=== PATIENT | female | born 1930 | race Caucasian/White ===

== ENCOUNTER 2017-03-26 11:36 | Inpatient (IN) | payer MEDICARE, MEDICAID ==
[~2017-03-26] VITALS: Ht 160 cm; Wt 70.8 kg
[~2017-03-26 11:36] MED LIST: ACET-2154 PO; AMIN30LI2 PO; DOCU-141 PO; ESCI5TAB PO; ESOM40CA PO; FOLI1TAB25 PO; GUAI100S23 PO; HYDR-552 PO; LEVO50TA8 PO; LISI10TA5 PO; MAGN400T30 PO; MEMA14CA PO; SENN8.6C5 PO; SOLI5TAB2 PO; TRAM50TA2 PO
[2017-03-26 12:19] LABS: BASOPHILS # (AUTO) 0.1 K/uL (0.0-8.0); BASOPHILS % (AUTO) 0.6 % (0.0-2.0); EOSINOPHILS # (AUTO) 0.3 K/uL (0.0-0.7); EOSINOPHILS % (AUTO) 1.6 % (0.0-7.0); HEMATOCRIT 42.4 % (37-47); HEMOGLOBIN 13.9 G/DL (12.0-16.0); LYMPHOCYTES # (AUTO) 2.2 K/UL (0.8-4.8); LYMPHOCYTES % (AUTO) 13.2 % (20.5-51.5); MEAN CORPUSCULAR HEMOGLOBIN 28.8 UUG (27.0-31.0); MEAN CORPUSCULAR HGB CONC 33 g/dL (32.0-37.0); MEAN CORPUSCULAR VOLUME 87.5 FL (81.0-99.0); MONOCYTES % (AUTO) 6.1 % (0.0-11.0); NEUTROPHILS # (AUTO) 12.7 K/UL (1.8-8.9); NEUTROPHILS % (AUTO) 78.5 % (38.5-71.5); PLATELET COUNT (AUTO) 203 K/UL (150-450); RED BLOOD CELL COUNT(AUTO) 4.85 MIL/UL (4.2-5.4); WHITE BLOOD COUNT (AUTO) 16.3 K/UL (4.0-11.2)
--- NOTE | 2017-03-26 12:20 | NUR ---
PATIENT WA SEEN BY . SHE IS AWAJE AND ALERT IN NO DISTRESS. SHE IS SLEEPY. DENIES PAIN, DENIES DIZZINESS.
[2017-03-26 12:22] LABS: CARBON DIOXIDE 30 mmol/L (21-32); CHLORIDE 105 mmol/L (98-107); CREATININE 0.6 mg/dL (0.6-1.3); GLUCOSE 103 mg/dL (74-106); POTASSIUM 3.8 mmol/L (3.5-5.1); UREA NITROGEN, BLOOD 30 mg/dL (7-18)
[2017-03-26 12:30] LABS: ALANINE AMINOTRANSFERASE 9 U/L (14-59); ALKALINE PHOSPHATASE 53 U/L (50-136); ASPARTATE AMINOTRANSFERASE 13 U/L (15-37); BILIRUBIN,DIRECT 0.1 mg/dL (0.0-0.2); BILIRUBIN,TOTAL 0.5 mg/dL (0.2-1.0); TOTAL PROTEIN, SERUM 6.6 g/dL (6.4-8.2)
[2017-03-26] MEDS ORDERED: NA P133E RC (12:34)
[2017-03-26] MEDS ORDERED: BISA10SU12 RC (12:34)
[2017-03-26] MEDS ORDERED: CRAN405C PO (12:34)
[2017-03-26] MEDS ORDERED: LACT-214 PO (12:34)
[2017-03-26] MEDS ORDERED: CHOL10002 PO (12:34)
[2017-03-26] MEDS ORDERED: FAMO20TA8 PO (12:34)
[2017-03-26] MEDS ORDERED: ERGO500040 PO (12:34)
[2017-03-26] MEDS ORDERED: ONDA4TAB5 PO (12:34)
[2017-03-26] MEDS ORDERED: MULT-213 PO (12:34)
[2017-03-26] MEDS ORDERED: MAGN400O6 PO (12:34)
[2017-03-26 13:01] LABS: *OCCULT BLOOD STOOL POSITIVE (NEGATIVE)
[2017-03-26] MEDS ORDERED: IOHEXOL 300MG/ML 100 ML INFUS..BTL ONE (13:03)
[2017-03-26] MEDS ORDERED: IV NORMAL SALINE 250 ML IV ONE (13:03)
--- NOTE | 2017-03-26 13:12 | NUR ---
PATIENT IS SLEEPING BUT AROUSES WITH TOUCH. DENIES PAIN. AWAITING LAB RESULTS.
[2017-03-26 13:19] LABS: BAND % (MANUAL) 3 % (0-10); EOSINOPHILS % (MANUAL) 3 % (0-8); LYMPHOCYTES % (MANUAL) 11 % (20-40); MONOCYTES % (MANUAL) 8 % (2-10); NEUTROPHILS % (MANUAL) 75 % (42-75)
[2017-03-26] MEDS ORDERED: METRONIDAZOLE 500 MG/NS 100ML 100 ML IV ONE ×2 (14:30→14:43)
[2017-03-26] MEDS ORDERED: CIPROFLOXACIN IV 400 MG in PREMIXED 1 EACH IV SCH (14:30)
--- NOTE | 2017-03-26 14:57 | NUR ---
PATIENT INFORMED OF PENDING ADMISSION TO HOSPITAL. REPORT GIVEN TO JULIO HERNDON.
--- NOTE | 2017-03-26 15:13 | NUR ---
PATIENTS DAUGHTER CALLED AND WILL BE ARRIVING SOON.
[2017-03-26 16:40] VITALS: BP 118/59
--- NOTE | 2017-03-26 16:50 | NUR ---
PT CAME FROM ER. SCANT BLOOD THAT CAME FROM RECTAL ARE NOTED. NO S/S OF RESPIRATORY DISTRESS NOTED. NO PAIN NOTED. ALL SAFETY NEEDS ARE MET.
--- NOTE | 2017-03-26 18:39 | NUR ---
TEL/RBO FROM DR SELLERS TO CONTINUE ALL HOME MEDS, CBC AND CMP IN AM, REGULAR DIET AND IVF. ENDORSED TO NURSE
[2017-03-26] MEDS ORDERED: FLEET ENEMA 133 ML BOTTLE RC PRN (18:45)
[2017-03-26] MEDS ORDERED: MAGNESIUM HYDROXIDE 30 ML LIQUID UDC PO PRN (18:45)
[2017-03-26] MEDS ORDERED: TRAMADOL HCL 50 MG TABLET PO PRN (18:45)
[2017-03-26] MEDS ORDERED: SENNOSIDES 1 TABLET PO PRN (18:45)
[2017-03-26] MEDS ORDERED: GUAIFENESIN SUGAR FREE 100 MG/5 ML UDC PO PRN (18:45)
[2017-03-26] MEDS ORDERED: HYDROCODONE/APAP 5-325MG TABLET PO PRN (18:45)
[2017-03-26] MEDS ORDERED: ACETAMINOPHEN 325 MG TABLET PO PRN (18:45)
[2017-03-26] MEDS ORDERED: ONDANSETRON HCL 4 MG TABLET PO PRN (18:45)
[2017-03-26] MEDS ORDERED: BISACODYL 10 MG SUPP.RECT RC PRN (18:45)
[2017-03-26] MEDS: IV D5/ 0.9% NACL 1,000 ML IV PRN (18:50)
--- NOTE | 2017-03-26 19:29 | NUR ---
NO CHANGES NOTED. ALL SAFETY NEEDS ARE MET.
[2017-03-26 20:00] VITALS: BP 120/39
[2017-03-26] MEDS: DOCUSATE SODIUM 100 MG CAPSULE PO SCH (20:00)
--- NOTE | 2017-03-26 23:45 | NUR ---
PATIENT PULL OUT HER IV LINE, WITH SLIGHT BLEEDING NOTED, ORIENT PATIENT NOT TO REMOVED HER IV LINE, PATIENT NEEDS REORIENTATION AT ALL TIME. REINSERT PERIPHERAL IV LINE TOLERATE WELL, CONT TO MONITOR.
[2017-03-27] VITALS: BP 108/44
[2017-03-27 04:00] VITALS: BP 109/59
[2017-03-27] MEDS: LEVOTHYROXINE SODIUM 50 MCG TABLET PO SCH (06:11)
[2017-03-27 06:41] LABS: BASOPHILS % (AUTO) 0.4 % (0.0-2.0); EOSINOPHILS # (AUTO) 0.3 K/uL (0.0-0.7); EOSINOPHILS % (AUTO) 3.2 % (0.0-7.0); HEMOGLOBIN 12.3 G/DL (12.0-16.0); LYMPHOCYTES % (AUTO) 18.4 % (20.5-51.5); MEAN CORPUSCULAR HEMOGLOBIN 29.8 UUG (27.0-31.0); MEAN CORPUSCULAR HGB CONC 34 g/dL (32.0-37.0); MEAN CORPUSCULAR VOLUME 86.5 FL (81.0-99.0); MONOCYTES # (AUTO) 0.7 K/UL (0.1-1.30); MONOCYTES % (AUTO) 6.3 % (0.0-11.0); NEUTROPHILS # (AUTO) 7.8 K/UL (1.8-8.9); NEUTROPHILS % (AUTO) 71.7 % (38.5-71.5); PLATELET COUNT (AUTO) 183 K/UL (150-450)
[2017-03-27 06:51] LABS: RED BLOOD CELL COUNT(AUTO) 4.13 MIL/UL (4.2-5.4); WHITE BLOOD COUNT (AUTO) 10.8 K/UL (4.0-11.2)
[2017-03-27 06:52] LABS: HEMATOCRIT 35.7 % (37-47)
[2017-03-27 06:55] LABS: ALANINE AMINOTRANSFERASE 13 U/L (14-59); ALKALINE PHOSPHATASE 46 U/L (50-136); ASPARTATE AMINOTRANSFERASE 12 U/L (15-37); BILIRUBIN,TOTAL 0.3 mg/dL (0.2-1.0); CARBON DIOXIDE 28 mmol/L (21-32); CHLORIDE 107 mmol/L (98-107); CREATININE 0.7 mg/dL (0.6-1.3); GLUCOSE 97 mg/dL (74-106); POTASSIUM 3.3 mmol/L (3.5-5.1); TOTAL PROTEIN, SERUM 5.7 g/dL (6.4-8.2); UREA NITROGEN, BLOOD 19 mg/dL (7-18)
--- NOTE | 2017-03-27 07:28 | NUR ---
PATIENT SLEPT INTERMITTENTLY T/O SHIFT. NO ACUTE DISTRESS NOTED. NO CHANGES T/O SHIFT. ALL NEEDS MET. SAFETY AND COMFORT MAINTAINED T/O SHIFT.
[2017-03-27] MEDS: OXYBUTYNIN CHLORIDE 5 MG TABLET PO SCH ×2 (08:20→17:44)
[2017-03-27] MEDS: MAGNESIUM OXIDE 400 MG TABLET PO SCH (08:20)
[2017-03-27] MEDS: FAMOTIDINE 20 MG TABLET PO SCH ×2 (08:20→17:44)
[2017-03-27] MEDS: CHOLECALCIFEROL 1,000 UNIT TABLET PO SCH (08:20)
[2017-03-27] MEDS: MULTIVIT, IRON, MIN NO. 8, FA TABLET PO SCH (08:20)
[2017-03-27] MEDS: DOCUSATE SODIUM 100 MG CAPSULE PO SCH ×2 (08:20→17:44)
[2017-03-27] MEDS: IV D5/ 0.9% NACL 1,000 ML IV PRN ×2 (08:21→20:51)
[2017-03-27] MEDS: LISINOPRIL 10 MG TABLET PO SCH (08:30)
[2017-03-27] MEDS ORDERED: ERGOCALCIFEROL 50,000 UNIT CAPSULE PO SCH (09:00)
[2017-03-27] MEDS ORDERED: LACTOSE FREE FOOD PO SCH (09:00)
[2017-03-27] MEDS ORDERED: Medication Not On Formulary EA (Cranberry Extract (Cranberry) 405 MG) PO SCH (09:00)
[2017-03-27] MEDS ORDERED: SOLIFENACIN SUCCINATE 5 MG TABEC PO SCH (09:00)
[2017-03-27 11:23] VITALS: BP 120/56
[2017-03-27] MEDS ORDERED: POTASSIUM CHLORIDE 20 MEQ TAB.PRT.SR PO ONE (12:45)
[2017-03-27 16:02] VITALS: BP 114/50
[2017-03-27] MEDS: PROTEIN SUPPLEMENT (PROSTAT) 30 ML LIQUID PO SCH (17:42)
[2017-03-27 19:00] VITALS: BP 136/70
--- NOTE | 2017-03-27 19:00 | NUR ---
PATIENT IN BED, NO SOB NO CHEST PAIN, WITH EPISODES OF AGITATION, ASSESS FOR PAIN AND DISCOMFORT, KEPT CLEAN AND DRY, GIVEN BRITTNEY CARE, REPOSITION THE PATIENT WITH HELP. CONT TO MONITOR.
--- NOTE | 2017-03-27 19:22 | NUR ---
pt is laying in bed comfortably. no s/s of respiratory distress noted. no pain noted. all safety needs are met.
--- NOTE | 2017-03-27 21:50 | NUR ---
PATIENT REFUSED DVT PUMP, COMPLAINING OF UNCOMFORTABLE. PATIENT COMPLAIN OF GENERALIZED BODY PAIN, AND RESTLESS, GIVEN PAIN MEDS AWAITING FOR RESULTS, NOTED PATIENT PULLING OUT IV LINE, REORIENT PATIENT BUT NO HELP, CONTINUE TO ORIENT AND MONITOR. KEPT CLEAN AND DRY.
[2017-03-27 23:57] VITALS: BP 114/60
[2017-03-28 04:00] VITALS: BP 126/58
--- NOTE | 2017-03-28 05:27 | NUR ---
PATIENT SLEPT ON AND OFF, NO SOB NO CHEST PAIN, KEPT CLEAN AND DRY, PATIENT TRIED TO PULLED OUT IV, AND ARM BAND, REORIENT PATIENT NOT TO REMOVED ARM BAND, PATIENT RYTHM IS SINUS RYTHM, CONT TO MONITOR.
[2017-03-28] MEDS: LEVOTHYROXINE SODIUM 50 MCG TABLET PO SCH (06:02)
[2017-03-28 06:34] LABS: BASOPHILS # (AUTO) 0.1 K/uL (0.0-8.0); BASOPHILS % (AUTO) 0.6 % (0.0-2.0); EOSINOPHILS # (AUTO) 0.4 K/uL (0.0-0.7); EOSINOPHILS % (AUTO) 4.2 % (0.0-7.0); HEMATOCRIT 35.9 % (37-47); HEMOGLOBIN 12.1 G/DL (12.0-16.0); LYMPHOCYTES # (AUTO) 1.8 K/UL (0.8-4.8); LYMPHOCYTES % (AUTO) 21.5 % (20.5-51.5); MEAN CORPUSCULAR HEMOGLOBIN 29.2 UUG (27.0-31.0); MEAN CORPUSCULAR HGB CONC 34 g/dL (32.0-37.0); MONOCYTES # (AUTO) 0.7 K/UL (0.1-1.30); MONOCYTES % (AUTO) 7.8 % (0.0-11.0); NEUTROPHILS # (AUTO) 5.4 K/UL (1.8-8.9); NEUTROPHILS % (AUTO) 65.9 % (38.5-71.5); PLATELET COUNT (AUTO) 186 K/UL (150-450); RED BLOOD CELL COUNT(AUTO) 4.12 MIL/UL (4.2-5.4); WHITE BLOOD COUNT (AUTO) 8.4 K/UL (4.0-11.2)
[2017-03-28 07:23] LABS: ALANINE AMINOTRANSFERASE 10 U/L (14-59); ALKALINE PHOSPHATASE 43 U/L (50-136); ASPARTATE AMINOTRANSFERASE 11 U/L (15-37); BILIRUBIN,TOTAL 0.3 mg/dL (0.2-1.0); CARBON DIOXIDE 29 mmol/L (21-32); CHLORIDE 107 mmol/L (98-107); CREATININE 0.6 mg/dL (0.6-1.3); GLUCOSE 103 mg/dL (74-106); MAGNESIUM 1.8 mg/dL (1.8-2.4); PHOSPHOROUS 2.7 mg/dL (2.5-4.9); POTASSIUM 3.5 mmol/L (3.5-5.1); TOTAL PROTEIN, SERUM 5.6 g/dL (6.4-8.2); UREA NITROGEN, BLOOD 12 mg/dL (7-18)
[2017-03-28] MEDS: PROTEIN SUPPLEMENT (PROSTAT) 30 ML LIQUID PO SCH ×3 (07:53→16:05)
[2017-03-28] MEDS: IV D5/ 0.9% NACL 1,000 ML IV PRN ×2 (08:11→23:29)
[2017-03-28] MEDS: MAGNESIUM OXIDE 400 MG TABLET PO SCH (08:11)
[2017-03-28] MEDS: CHOLECALCIFEROL 1,000 UNIT TABLET PO SCH (08:11)
[2017-03-28] MEDS: DOCUSATE SODIUM 100 MG CAPSULE PO SCH ×2 (08:11→16:57)
[2017-03-28] MEDS: MULTIVIT, IRON, MIN NO. 8, FA TABLET PO SCH (08:15)
[2017-03-28] MEDS: OXYBUTYNIN CHLORIDE 5 MG TABLET PO SCH ×2 (08:15→16:57)
[2017-03-28] MEDS: LISINOPRIL 10 MG TABLET PO SCH (08:15)
[2017-03-28] MEDS: FAMOTIDINE 20 MG TABLET PO SCH ×2 (08:15→16:57)
[2017-03-28] MEDS: QUETIAPINE FUMARATE 25 MG TABLET PO PRN ×2 (09:07→16:57)
[2017-03-28 11:56] VITALS: BP 159/88
[2017-03-28 15:45] VITALS: BP 136/66
--- NOTE | 2017-03-28 18:00 | NUR ---
PT'S FAMILY STATING THAT PT IS AGITATED AND NEEDS MEDICATION FOR AGITATION. ASSESSED THE PT, PT IS AGITATED AND TRYING TO GET OUT OF BED. PT IS A FALL RISK. ADMINISTERED SEROQUEL PER DR'S ORDER. AFTER 2 MIN OF SEROQUEL GIVEN PT'S FAMILY SAID SHE GOT AGITATED AND CONFUSED AFTER SEROQUEL DOSE. EXPLAINED THAT MEDICATION NEEDS MORE TIME TO START WORKING. PT'S FAMILY IS UPSET THAT SEROQUEL IS GIVEN. CALLED DR. SAM PER DR SAM "STOP SEROQUEL AND GIVE BENADRYL PO FOR ITCHING 25MG Q6PRN FOR ITCHING" ORDER NOTED. DR. SAM WAS PAGED 2 TIMES BEFPRE CALLING BACK. ADVISED FAMILY.
[2017-03-28 19:00] VITALS: BP 140/85
[2017-03-28] MEDS ORDERED: diphenhydrAMINE 25 MG CAP PO PRN (19:00)
--- NOTE | 2017-03-28 19:30 | NUR ---
NO CHANGES NOTED. ALL SAFETY NEEDS ARE MET.
--- NOTE | 2017-03-28 20:30 | NUR ---
Benadryl 25 mg po admin for c/o itching,effective.patient was seen by for Psych consult,order received.SR with pvc's on monitor,high risk fall, bed alarm on.
[2017-03-28] MEDS: risperiDONE 0.25 MG TABLET PO SCH (21:50)
--- NOTE | 2017-03-28 22:20 | NUR ---
RECEIVED PATIENT SLEEPING COMFORTABLY IN BED. NO ACUTE DISTRESS NOTED. SAFETY INITIATED. CALL LIGHT WITHIN REACH. TELE SR WITH PVC. WILL CONTINUE TO MONITOR.
[2017-03-29] VITALS: BP 151/71
[2017-03-29 04:00] VITALS: BP 138/66
[2017-03-29] MEDS: LEVOTHYROXINE SODIUM 50 MCG TABLET PO SCH (06:01)
--- NOTE | 2017-03-29 07:27 | NUR ---
NO CHANGES T/O SHIFT. ALL COMFORT AND SAFETY MEASURES MAINTAINED T/O SHIFT. CALL LIGHT WITHIN REACH.
--- NOTE | 2017-03-29 08:00 | NUR ---
AWAKE COOPERATE WELL NO SOB OR PAIN ON FALL/ASPIRATION PRECAUTION BED ALARM ON AND CALL LIGHT WITHIN REACH
[2017-03-29] MEDS: CHOLECALCIFEROL 1,000 UNIT TABLET PO SCH (08:35)
[2017-03-29] MEDS: FAMOTIDINE 20 MG TABLET PO SCH ×2 (08:35→16:59)
[2017-03-29] MEDS: LISINOPRIL 10 MG TABLET PO SCH (08:36)
[2017-03-29] MEDS: OXYBUTYNIN CHLORIDE 5 MG TABLET PO SCH ×2 (08:36→16:59)
[2017-03-29] MEDS: MAGNESIUM OXIDE 400 MG TABLET PO SCH (08:36)
[2017-03-29] MEDS: MULTIVIT, IRON, MIN NO. 8, FA TABLET PO SCH (08:36)
[2017-03-29] MEDS: DOCUSATE SODIUM 100 MG CAPSULE PO SCH ×2 (08:37→16:59)
[2017-03-29] MEDS: PROTEIN SUPPLEMENT (PROSTAT) 30 ML LIQUID PO SCH ×3 (08:45→17:03)
[2017-03-29] MEDS: IV D5/ 0.9% NACL 1,000 ML IV PRN ×2 (10:00→23:37)
[2017-03-29 11:09] VITALS: BP 114/53
--- NOTE | 2017-03-29 13:00 | NUR ---
DR SAM SEE PATIENT TODAY CONDITION INFORM AND URINE FOR UA c&S COLLECT AND SEND TO LAB
[2017-03-29 15:07] VITALS: BP 110/64
[2017-03-29 15:56] LABS: *BILIRUBIN,URIN NEGATIVE (NEGATIVE); *BLOOD, URINE 2+ (NEGATIVE); *CLARITY,URINE CLOUDY (CLEAR); *COLOR,URINE YELLOW (YELLOW); *KETONES,URINE NEGATIVE (NEGATIVE); *PROTEIN,URINE 1+ (NEGATIVE); LEUKOCYTE ESTERASE ,URINE 1+ (NEGATIVE); NITRITE, URINE NEGATIVE (NEGATIVE); PH,URINE 7.5 (5.0-8.0); UGLUCOSE NEGATIVE (NEGATIVE)
[2017-03-29] MEDS ORDERED: GOLYTELY 4000 ML BOTTLE PO ONE (16:45)
--- NOTE | 2017-03-29 17:00 | NUR ---
DR GONZALES SEEN PATIENT AND ORDER SCHEDULE FOR COLONOSCOPY IN AM
--- NOTE | 2017-03-29 17:30 | NUR ---
START CLEAR LIQ FOR DINNER AND GOLYTELY GIVEN ORDER FAMILY WAS CALL FOR TEL CONSENT AND MESSAGE LEFT
--- NOTE | 2017-03-29 17:45 | NUR ---
RESTING WELL MOST OF THE TIME NO AGITATION PAIN UNDER CONTROL NO BLEEDING NO ACUTE DISTRESS SAFETY MEASURE PROVIDED CALL SUERO IN REACH
[2017-03-29 17:47] LABS: BACTERIA,URINE MANY /HPF (NONE SEEN); SQUAMOUS EPITHELIAL CELL,UR MANY /HPF (NONE SEEN); WBC,URINE 50-80 /HPF (0-3)
[2017-03-29 19:55] VITALS: BP 112/66
[2017-03-29] MEDS: risperiDONE 0.25 MG TABLET PO SCH (21:44)
[2017-03-30 05:00] VITALS: BP 127/66
--- NOTE | 2017-03-30 06:00 | NUR ---
Pt slepted well during the night after completing 3.5 liters of golytely and tolerated well with no vomiting episodes noted. pt had several good loose brown bowel movements during the night, partial clear. Consent signed via telephone with son Sameer Dorita, and abstract writer, witnessed with smelter charger Cindy.
[2017-03-30] MEDS: LEVOTHYROXINE SODIUM 50 MCG TABLET PO SCH (06:40)
[2017-03-30] MEDS ORDERED: IRR STERIL WATER FOR IRR 1000 ML BOTTLE IR ONE (07:35)
[2017-03-30] MEDS ORDERED: PROPOFOL 200 MG/20 ML BOTTLE IV ONE (07:35)
[2017-03-30] MEDS ORDERED: IV NORMAL SALINE 1000 ML BAG IV ONE (07:35)
[2017-03-30] MEDS: PROTEIN SUPPLEMENT (PROSTAT) 30 ML LIQUID PO SCH ×3 (07:59→16:59)
[2017-03-30] MEDS: CHOLECALCIFEROL 1,000 UNIT TABLET PO SCH (08:00)
[2017-03-30] MEDS: MAGNESIUM OXIDE 400 MG TABLET PO SCH ×2 (08:00→15:30)
[2017-03-30] MEDS: FAMOTIDINE 20 MG TABLET PO SCH ×2 (08:00→16:57)
[2017-03-30] MEDS: MULTIVIT, IRON, MIN NO. 8, FA TABLET PO SCH ×2 (08:00→15:30)
[2017-03-30] MEDS: OXYBUTYNIN CHLORIDE 5 MG TABLET PO SCH ×2 (08:00→16:57)
[2017-03-30] MEDS: DOCUSATE SODIUM 100 MG CAPSULE PO SCH ×2 (08:00→16:57)
--- NOTE | 2017-03-30 08:00 | NUR ---
AWAKE COOPERATE WELL NO PAIN OR SOB ON FALL /ASPIRATION PRECAUTION NPO FOR COLONOSCOPY TODAY RESTING WELL WITH CALL SUERO IN REACH AND BED ALARNM ON
[2017-03-30] MEDS: LISINOPRIL 10 MG TABLET PO SCH (08:08)
--- NOTE | 2017-03-30 09:30 | NUR ---
DR ASM WAS INFORM OF UA RESULT NO NEW ORDER WAITING FOR STOOL C DIFF RESULT STILL PENDING
[2017-03-30 11:37] VITALS: BP 116/47
--- NOTE | 2017-03-30 13:00 | NUR ---
TO GI LAB VIA BED CONDITION STABLE
[2017-03-30 15:00] VITALS: BP 121/56
--- NOTE | 2017-03-30 15:00 | NUR ---
DR SAM WAS CALL AND DR VERITO LAN REGARDING LAB URINE C$S RESULT AND STOOL C DIFF RESULT AND MESSAGE LEFT
--- NOTE | 2017-03-30 15:00 | NUR ---
BACK TO ROOM VS TAKEN STABLE NO PAIN OR SOB RESTING WITH CALL LIGHT IN REACH
--- NOTE | 2017-03-30 15:00 | NUR ---
BACK TO ROOM VS TAKEN STABLE NO PAIN OR SOB
[2017-03-30 15:47] VITALS: BP 121/56
--- NOTE | 2017-03-30 17:00 | NUR ---
EAT DINNER 40% PO FLD RAZA WELL VOIDING WELL DIAPER CHANGE
--- NOTE | 2017-03-30 17:30 | NUR ---
STABLE CONDITION RESTING WELL MOST OF THE TIME NO ACUTE DISTRESS PAIN UNDER CONTROL SAFETY MEASURE PROVIDED CALL SUERO IN REACH AND BED ALARM ON
--- NOTE | 2017-03-30 18:00 | NUR ---
DR SELLERS CALL BACK PT URINE C&S AND STOOL C DIFF RESULT INFORM NO ORDER
[2017-03-30 20:00] VITALS: BP 143/72
[2017-03-30] MEDS: risperiDONE 0.25 MG TABLET PO SCH (20:03)
[2017-03-31 04:50] VITALS: BP 109/57
[2017-03-31] MEDS: LEVOTHYROXINE SODIUM 50 MCG TABLET PO SCH (06:33)
--- NOTE | 2017-03-31 06:43 | NUR ---
PT IN BED, RESTING WELL. RESP IS EVEN AND UNLABORED. NO SOB. NO ACUTE DISTRESS. ALL DUE MEDS GIVEN ORDERED AND RAZA WELL. SAFETY MEASURES IN PLACE. CALL LIGHT WITH IN REACH. WILL CONT TO MONITOR.
[2017-03-31] MEDS: FAMOTIDINE 20 MG TABLET PO SCH ×2 (08:46→16:59)
[2017-03-31] MEDS: CHOLECALCIFEROL 1,000 UNIT TABLET PO SCH (08:46)
[2017-03-31] MEDS: MULTIVIT, IRON, MIN NO. 8, FA TABLET PO SCH (08:46)
[2017-03-31] MEDS: MAGNESIUM OXIDE 400 MG TABLET PO SCH (08:46)
[2017-03-31] MEDS: DOCUSATE SODIUM 100 MG CAPSULE PO SCH ×2 (08:46→16:59)
[2017-03-31] MEDS: OXYBUTYNIN CHLORIDE 5 MG TABLET PO SCH ×2 (08:46→16:59)
[2017-03-31] MEDS: PROTEIN SUPPLEMENT (PROSTAT) 30 ML LIQUID PO SCH ×3 (08:48→17:00)
[2017-03-31] MEDS: LISINOPRIL 10 MG TABLET PO SCH (08:49)
[2017-03-31] MEDS: Z GUARD REMEDY PASTE 57 GM TUBE TOP SCH ×2 (09:38→20:08)
--- NOTE | 2017-03-31 11:41 | NUR ---
PATIENT SEEN AND EXAMINED BY DR CUELLAR WITH NEW ORDER TO START PATIENT ON ANTIBIOTICS AND NOTED PATIENT AWARE.
[2017-03-31 12:24] VITALS: BP 149/63
[2017-03-31] MEDS: CEFAZOLIN 1 G in PREMIXED 1 EACH IV SCH ×2 (15:25→23:41)
[2017-03-31 16:44] VITALS: BP 112/60
--- NOTE | 2017-03-31 17:15 | NUR ---
PT IN BED, RESTING WELL. RESP IS EVEN AND UNLABORED. NO SOB. NO ACUTE DISTRESS. SAFETY MEASURES IN PLACE. CALL LIGHT WITH IN REACH. WILL CONT TO MONITOR.
--- NOTE | 2017-03-31 18:00 | NUR ---
IVPB ATB REMAINS ORDERED WITH NO ADVERSE OR ALLERGIC REACTIONS AT THIS TIME.PATIENT SEEN AND EXAMINED BY DR DUGAN WITH NO NEW ORDERS AT THIS TIME
[2017-03-31] MEDS: risperiDONE 0.25 MG TABLET PO SCH (20:07)
[2017-03-31 21:31] VITALS: BP 131/67
[2017-04-01] MEDS: CEFAZOLIN 1 G in PREMIXED 1 EACH IV SCH ×2 (05:14→13:12)
[2017-04-01 05:22] VITALS: BP 140/66
[2017-04-01] MEDS: LEVOTHYROXINE SODIUM 50 MCG TABLET PO SCH (06:10)
--- NOTE | 2017-04-01 06:38 | NUR ---
PT IS ALERT AND RESPONSIVE. RESP IS EVEN AND UNLABORED. NO SOB. NO ACUTE DISTRESS. ATB GIVEN ORDERED AND TOLERATED. IV ON R HAND, PATENT AND INTACT. VSS. CALL LIGHT WITHIN REACH.
[2017-04-01] MEDS: MULTIVIT, IRON, MIN NO. 8, FA TABLET PO SCH (08:49)
[2017-04-01] MEDS: MAGNESIUM OXIDE 400 MG TABLET PO SCH (08:49)
[2017-04-01] MEDS: OXYBUTYNIN CHLORIDE 5 MG TABLET PO SCH ×2 (08:49→16:37)
[2017-04-01] MEDS: FAMOTIDINE 20 MG TABLET PO SCH ×2 (08:49→16:37)
[2017-04-01] MEDS: DOCUSATE SODIUM 100 MG CAPSULE PO SCH ×2 (08:49→16:37)
[2017-04-01] MEDS: CHOLECALCIFEROL 1,000 UNIT TABLET PO SCH (08:50)
[2017-04-01] MEDS: LISINOPRIL 10 MG TABLET PO SCH (08:50)
[2017-04-01] MEDS: Z GUARD REMEDY PASTE 57 GM TUBE TOP SCH (08:58)
[2017-04-01] MEDS: PROTEIN SUPPLEMENT (PROSTAT) 30 ML LIQUID PO SCH ×3 (08:58→16:41)
[2017-04-01 11:44] VITALS: BP 117/84
[2017-04-01] MEDS ORDERED: PROT30LI PO (13:33)
[2017-04-01] MEDS ORDERED: MENT71OI TOP (13:33)
[2017-04-01] MEDS ORDERED: RISP0.253 PO (13:33)
--- NOTE | 2017-04-01 13:37 | NUR ---
DR CUELLAR HERE TO SEE PATIENT AND STATED WILL DISCHARGE PATIENT BACK TO [facility] TODAY WILL CALL THE SNF TO CONFIRM THE BED AVAILABILITY.
--- NOTE | 2017-04-01 14:00 | NUR ---
NEW ORDER NOTED FROM DR CUELLAR TO START KEFLEX FOR THREE DAYS WHILE AT THE LONG-TERM.CALLED SUELLEN KU AND LEFT HIM A MESSAGE ON HIS VOICE MAIL REGARDING PATIENT BEING DISCHARGED TO [facility] TODAY.
[2017-04-01 15:54] VITALS: BP 128/56
--- NOTE | 2017-04-01 17:32 | NUR ---
PATIENTS SON AND HIS ARE HERE AND THEY ARE AWARE THAT PATIENT WILL BE TRANSFERED TO THE [facility] TODAY.CALLED [facility] AND REPORT GIVEN TO [facility] FOR CONTINUING CARE SHE IS AWARE THAT PATIENT SHOULD START ON KEFLEX DAILY FOR 3 DAYS AND SHE EXPRESSED UNDERSTANDING.
--- NOTE | 2017-04-01 19:00 | NUR ---
PATIENT DISCHARGED PICKED UP BY [facility] IN SATISFACTORY CONDITION WITH DISCHARGE INSTRUCTIONS ALREADY GIVEN TO THE RECEIVING FACILITY.PATIENT HAS HER EYE GLASSES AND SHE IS WEARING IT AT THIS TIME.
[2017-04-02] MEDS ORDERED: ERGOCALCIFEROL 50,000 UNIT CAPSULE PO SCH (09:00)
== END 2017-04-01 18:58 | DRG 392 ==
LOC: ER 11:36 → MED 15:23 → UNDOADMIN 15:23 → TELE 15:59 → MED 03-29 17:06
PROVIDERS: ADMIT Internal Medicine; ATTEND Internal Medicine
PROC: 0DBK8ZX Excision of Ascending Colon, Via Natural or Artificial Opening Endoscopic, Diagnostic (ICD-10-PCS; 2017-03-30)
PROC: 0DBL8ZX Excision of Transverse Colon, Via Natural or Artificial Opening Endoscopic, Diagnostic (ICD-10-PCS; 2017-03-30)
PROC: 0DBP8ZX Excision of Rectum, Via Natural or Artificial Opening Endoscopic, Diagnostic (ICD-10-PCS; principal; 2017-03-30 13:25)
DX: A08.4 Viral intestinal infection, unspecified (principal); F03.90 Unspecified dementia, unspecified severity, without behavioral disturbance, psychotic disturbance, mood disturbance, and anxiety; N39.0 Urinary tract infection, site not specified; K21.9 Gastro-esophageal reflux disease without esophagitis; E03.9 Hypothyroidism, unspecified; Z91.81 History of falling; Z90.710 Acquired absence of both cervix and uterus; Z96.652 Presence of left artificial knee joint; Z98.890 Other specified postprocedural states; R26.9 Unspecified abnormalities of gait and mobility; I10 Essential (primary) hypertension; F29 Unspecified psychosis not due to a substance or known physiological condition
CPT/HCPCS: 36415; 83735; 84100; 85025; 85730; 86850; 86900; 86901; 87040; 87077; 87086; 97116; 97161; 97530; A4217; J0690; J0744; J3490; J7030; J7040; J7042; J7050; Q0163; Q9967

== ENCOUNTER 2017-10-27 21:53 | Emergency (ER) | payer MEDICARE, MEDICAID ==
[~2017-10-27] VITALS: Ht 160 cm; Wt 70.3 kg
[~2017-10-27 21:53] MED LIST changes: -AMIN30LI2 PO; +BISA10SU12 RC; +CHOL10002 PO; +CRAN405C PO; +ERGO500040 PO; -ESCI5TAB PO; -ESOM40CA PO; +FAMO20TA8 PO; -FOLI1TAB25 PO; +LACT-214 PO; +MAGN400O6 PO; -MEMA14CA PO; +MENT71OI TOP; +MULT-213 PO; +NA P133E RC; +ONDA4TAB5 PO; +PROT30LI PO; +RISP0.253 PO
[2017-10-27] MEDS ORDERED: LORA10TA7 PO (22:13)
[2017-10-27] MEDS ORDERED: DOCU250C14 PO (22:13)
[2017-10-27] MEDS ORDERED: METH1TAB PO (22:13)
[2017-10-27 23:29] LABS: BASOPHILS # (AUTO) 0.1 K/uL (0.0-8.0); BASOPHILS % (AUTO) 0.5 % (0.0-2.0); EOSINOPHILS # (AUTO) 0.4 K/uL (0.0-0.7); EOSINOPHILS % (AUTO) 2.9 % (0.0-7.0); HEMATOCRIT 38.6 % (31.2-41.9); HEMOGLOBIN 12.9 g/dL (10.9-14.3); LYMPHOCYTES # (AUTO) 2.3 K/uL (20.0-40.0); LYMPHOCYTES % (AUTO) 17.8 % (20.5-51.5); MEAN CORPUSCULAR HEMOGLOBIN 28.9 uug (24.7-32.8); MEAN CORPUSCULAR HGB CONC 34 g/dL (32.3-35.6); MEAN CORPUSCULAR VOLUME 86.1 fL (75.5-95.3); MONOCYTES # (AUTO) 0.9 K/uL (2.0-10.0); NEUTROPHILS # (AUTO) 9.1 K/uL (1.8-8.9); NEUTROPHILS % (AUTO) 71.8 % (38.5-71.5); PLATELET COUNT (AUTO) 211 K/uL (179-408); RED BLOOD CELL COUNT(AUTO) 4.48 MIL/uL (3.63-4.92); WHITE BLOOD COUNT (AUTO) 12.7 K/uL (3.8-11.8)
[2017-10-27 23:36] LABS: CARBON DIOXIDE 26 mmol/L (21-32); CHLORIDE 103 mmol/L (98-107); CREATININE 0.8 mg/dL (0.6-1.3); GLUCOSE 118 mg/dL (74-106); POTASSIUM 4.4 mmol/L (3.5-5.1); UREA NITROGEN, BLOOD 31 mg/dL (7-18)
[2017-10-27 23:42] LABS: ALANINE AMINOTRANSFERASE 16 U/L (14-59); ALKALINE PHOSPHATASE 53 U/L (50-136); ASPARTATE AMINOTRANSFERASE 15 U/L (15-37); BILIRUBIN,DIRECT < 0.1 mg/dL (0.0-0.2); BILIRUBIN,TOTAL 0.2 mg/dL (0.2-1.0); TOTAL PROTEIN, SERUM 6.3 g/dL (6.4-8.2)
[2017-10-28 00:41] LABS: *BILIRUBIN,URIN NEGATIVE (NEGATIVE); *BLOOD, URINE 2+ (NEGATIVE); *COLOR,URINE YELLOW (YELLOW); *KETONES,URINE NEGATIVE (NEGATIVE); *PROTEIN,URINE NEGATIVE (NEGATIVE); *UROBILINOGEN,URINE 0.2 E.U./dl (NORMAL); LEUKOCYTE ESTERASE ,URINE TRACE (NEGATIVE); NITRITE, URINE POSITIVE (NEGATIVE); PH,URINE 5.5 (5.0-8.0); UGLUCOSE NEGATIVE (NEGATIVE)
[2017-10-28 00:49] LABS: *CLARITY,URINE HAZY (CLEAR)
[2017-10-28 00:50] LABS: BACTERIA,URINE MANY /HPF (NONE SEEN); SQUAMOUS EPITHELIAL CELL,UR MODERATE /HPF (NONE SEEN)
--- NOTE | 2017-10-28 01:46 | NUR ---
Report given to [facility].
--- NOTE | 2017-10-28 01:49 | NUR ---
Call placed to [facility], Trip #[id number].
--- NOTE | 2017-10-28 04:08 | NUR ---
Patient discharged to home in stable conditon via ambulance. Written and verbal after care instructions given. Patient verbalizes understanding of instructions.
[2017-10-28 04:10] VITALS: BP 131/62
== END 2017-10-28 04:10 | disposition home or self-care (01) ==
LOC: ER 21:54
DX: S00.01XA Abrasion of scalp, initial encounter (principal); R51 Headache; F03.90 Unspecified dementia, unspecified severity, without behavioral disturbance, psychotic disturbance, mood disturbance, and anxiety; I10 Essential (primary) hypertension; Z90.49 Acquired absence of other specified parts of digestive tract; K21.9 Gastro-esophageal reflux disease without esophagitis; W07.XXXA Fall from chair, initial encounter; Y92.89 Other specified places as the place of occurrence of the external cause; Y93.89 Activity, other specified; Y99.8 Other external cause status
CPT/HCPCS: 36415; 70030-TC; 70450; 71045; 72125; 85025; 93005; A4217; A4663; C1758

== ENCOUNTER 2017-11-19 14:59 | Inpatient (IN) | payer MEDICARE, MEDICAID ==
[~2017-11-19] VITALS: Ht 154.9 cm; Wt 59.0 kg
[~2017-11-19 14:59] MED LIST changes: -DOCU-141 PO; +DOCU250C14 PO; -GUAI100S23 PO; -LACT-214 PO; +LORA10TA7 PO; -MENT71OI TOP; +METH1TAB PO; -PROT30LI PO; -RISP0.253 PO
--- NOTE | 2017-11-19 15:32 | NUR ---
ATTEMTED TO DO NIHSS ASSESSMENT WITH THE PT BEST EFFORT POSSIBLE.
[2017-11-19 15:46] LABS: CARBON DIOXIDE 30 mmol/L (21-32); CHLORIDE 103 mmol/L (98-107); CREATININE 0.8 mg/dL (0.6-1.3); GLUCOSE 104 mg/dL (74-106); POTASSIUM 4.2 mmol/L (3.5-5.1); UREA NITROGEN, BLOOD 31 mg/dL (7-18)
[2017-11-19 15:48] LABS: BASOPHILS # (AUTO) 0.1 K/uL (0.0-8.0); EOSINOPHILS # (AUTO) 0.5 K/uL (0.0-0.7); EOSINOPHILS % (AUTO) 5.1 % (0.0-7.0); HEMATOCRIT 40.1 % (31.2-41.9); HEMOGLOBIN 13.3 g/dL (10.9-14.3); LYMPHOCYTES # (AUTO) 2.3 K/uL (20.0-40.0); LYMPHOCYTES % (AUTO) 24.1 % (20.5-51.5); MEAN CORPUSCULAR HEMOGLOBIN 29.1 uug (24.7-32.8); MEAN CORPUSCULAR HGB CONC 33 g/dL (32.3-35.6); MEAN CORPUSCULAR VOLUME 87.4 fL (75.5-95.3); MONOCYTES # (AUTO) 0.8 K/uL (2.0-10.0); MONOCYTES % (AUTO) 8.4 % (0.0-11.0); NEUTROPHILS # (AUTO) 5.9 K/uL (1.8-8.9); NEUTROPHILS % (AUTO) 61.4 % (38.5-71.5); PLATELET COUNT (AUTO) 222 K/uL (179-408); RED BLOOD CELL COUNT(AUTO) 4.59 MIL/uL (3.63-4.92); WHITE BLOOD COUNT (AUTO) 9.7 K/uL (3.8-11.8)
[2017-11-19 15:52] LABS: ALANINE AMINOTRANSFERASE 14 U/L (14-59); ALKALINE PHOSPHATASE 58 U/L (50-136); ASPARTATE AMINOTRANSFERASE 14 U/L (15-37); BILIRUBIN,DIRECT 0.1 mg/dL (0.0-0.2); BILIRUBIN,TOTAL 0.2 mg/dL (0.2-1.0); TOTAL PROTEIN, SERUM 6.6 g/dL (6.4-8.2)
--- NOTE | 2017-11-19 16:11 | NUR ---
Paged dr Guevara for admit.
[2017-11-19 16:19] LABS: *BILIRUBIN,URIN NEGATIVE (NEGATIVE); *BLOOD, URINE 2+ (NEGATIVE); *CLARITY,URINE CLOUDY (CLEAR); *COLOR,URINE YELLOW (YELLOW); *KETONES,URINE NEGATIVE (NEGATIVE); *PROTEIN,URINE NEGATIVE (NEGATIVE); *UROBILINOGEN,URINE 0.2 E.U./dl (NORMAL); LEUKOCYTE ESTERASE ,URINE TRACE (NEGATIVE); NITRITE, URINE POSITIVE (NEGATIVE); PH,URINE 5.5 (5.0-8.0); UGLUCOSE NEGATIVE (NEGATIVE)
[2017-11-19 16:35] LABS: BACTERIA,URINE MANY /HPF (NONE SEEN); SQUAMOUS EPITHELIAL CELL,UR MODERATE /HPF (NONE SEEN)
[2017-11-19] MEDS ORDERED: CEFTRIAXONE 1 G VIAL ONE (16:40)
[2017-11-19] MEDS ORDERED: CEFTRIAXONE 1 G in IV DEXTROSE 5% 50 ML IV SCH (16:45)
--- NOTE | 2017-11-19 17:05 | NUR ---
PT TRANSFERED TO [facility] IN STABLE CONDITION
[2017-11-19 17:20] VITALS: BP 125/66
--- NOTE | 2017-11-19 17:20 | NUR ---
NEW PATIENT FROM ER TO ROOM 214 AWAKE ORTX1 TO NAME BUT ABLE TO FOLLOW SIMPLE DIRECTION AND COOPERATE NO SOB OR PAIN VS TAKEN STABLE ON ASPIRATION /FALL PRECAUTION BED ALARM ON AND CALL LIGHT IN REACH
[2017-11-19] MEDS ORDERED: FLEET ENEMA 133 ML BOTTLE RC PRN (18:45)
[2017-11-19] MEDS ORDERED: BISACODYL 10 MG SUPP.RECT RC PRN (18:45)
[2017-11-19] MEDS ORDERED: MAGNESIUM HYDROXIDE 30 ML LIQUID UDC PO PRN (18:45)
[2017-11-19] MEDS ORDERED: HYDROCODONE/APAP 5-325MG TABLET PO PRN (18:45)
[2017-11-19] MEDS ORDERED: ACETAMINOPHEN 325 MG TABLET PO PRN (18:45)
[2017-11-19] MEDS ORDERED: ONDANSETRON HCL 4 MG TABLET PO PRN (18:45)
[2017-11-19] MEDS ORDERED: CEFTRIAXONE 1 G VIAL IM SCH (18:45)
[2017-11-19] MEDS ORDERED: TRAMADOL HCL 50 MG TABLET PO PRN (18:45)
[2017-11-19] MEDS ORDERED: ONDANSETRON 4 MG/2 ML VIAL IV PRN (18:45)
[2017-11-19 20:00] VITALS: BP 125/59
[2017-11-19] MEDS: SENNOSIDES 1 TABLET PO SCH (21:18)
[2017-11-19] MEDS: ENOXAPARIN SODIUM 40 MG/0.4 ML DISP.SYRIN SQ SCH (21:19)
[2017-11-20] VITALS: BP 117/38
[2017-11-20 04:00] VITALS: BP 121/48
[2017-11-20] MEDS: LEVOTHYROXINE SODIUM 50 MCG TABLET PO SCH (06:10)
[2017-11-20 06:43] LABS: BASOPHILS # (AUTO) 0.1 K/uL (0.0-8.0); BASOPHILS % (AUTO) 0.8 % (0.0-2.0); EOSINOPHILS # (AUTO) 0.4 K/uL (0.0-0.7); EOSINOPHILS % (AUTO) 4.8 % (0.0-7.0); HEMOGLOBIN 12.6 g/dL (10.9-14.3); LYMPHOCYTES # (AUTO) 2.3 K/uL (20.0-40.0); MEAN CORPUSCULAR HEMOGLOBIN 29.3 uug (24.7-32.8); MEAN CORPUSCULAR HGB CONC 34 g/dL (32.3-35.6); MEAN CORPUSCULAR VOLUME 86.2 fL (75.5-95.3); MONOCYTES # (AUTO) 0.6 K/uL (2.0-10.0); MONOCYTES % (AUTO) 8.2 % (0.0-11.0); NEUTROPHILS # (AUTO) 4.1 K/uL (1.8-8.9); NEUTROPHILS % (AUTO) 55.2 % (38.5-71.5); PLATELET COUNT (AUTO) 192 K/uL (179-408); WHITE BLOOD COUNT (AUTO) 7.4 K/uL (3.8-11.8)
[2017-11-20 07:00] LABS: ALANINE AMINOTRANSFERASE 15 U/L (14-59); ALKALINE PHOSPHATASE 51 U/L (50-136); ASPARTATE AMINOTRANSFERASE 12 U/L (15-37); BILIRUBIN,TOTAL 0.3 mg/dL (0.2-1.0); CARBON DIOXIDE 28 mmol/L (21-32); CHLORIDE 105 mmol/L (98-107); CREATININE 0.7 mg/dL (0.6-1.3); GLUCOSE 95 mg/dL (74-106); UREA NITROGEN, BLOOD 22 mg/dL (7-18)
[2017-11-20] MEDS: LISINOPRIL 10 MG TABLET PO SCH (09:00)
[2017-11-20] MEDS ORDERED: SOLIFENACIN SUCCINATE 5 MG TABEC PO SCH (09:00)
[2017-11-20] MEDS ORDERED: HOME MED MISCELLANEOUS PO SCH (09:00)
[2017-11-20] MEDS: MULTIVIT, IRON, MIN NO. 8, FA TABLET PO SCH (09:57)
[2017-11-20] MEDS: MAGNESIUM OXIDE 400 MG TABLET PO SCH (09:57)
[2017-11-20] MEDS: OXYBUTYNIN CHLORIDE 5 MG TABLET PO SCH ×2 (09:57→21:50)
[2017-11-20] MEDS: LORATADINE 10 MG TABLET PO SCH (09:57)
[2017-11-20] MEDS: DOCUSATE SODIUM 250 MG CAPSULE PO SCH ×2 (09:57→17:19)
[2017-11-20] MEDS: CHOLECALCIFEROL 1,000 UNIT TABLET PO SCH (09:58)
[2017-11-20 12:00] VITALS: BP 116/68
[2017-11-20] MEDS: FAMOTIDINE 20 MG TABLET PO SCH ×2 (12:41→17:19)
[2017-11-20 15:36] VITALS: BP 128/45
--- NOTE | 2017-11-20 17:45 | NUR ---
PATIENT ALERT AND ORIENTED BUT CONFUSED AT TIMES. SHE HAD NO SIGN OF AGITATION. BUT SHE FULLED OUT THE IV HEPLOCK IN NITE SHIFT AND AM SHIFT. WE TRIED TO EXPLAINED ABOUT THE NEED OF HEPLOCK. BUT SHE PULLED OUT AGAIN THE NEWLY INSERTED IV HEPLOCK.
--- NOTE | 2017-11-20 19:35 | NUR ---
PT RECEIVED IN BED, AWAKE. A/OX1. ABLE TO MAKE NEEDS KNOWN. V/S STABLE. IN NO ACUTE DISTRESS. NO C/O PAIN AT THIS TIME. NO IV IN PLACE, PT REFUSE. WILL ATTEMPT AT LATER TIME. SINUS KARISSA 53 WITH YESY Lobato MD AWARE. ON RA, TOLERATING WELL. AFEBRILE. HOB ELEVATED. SAFETY MEASURES IMPLEMENTED. CALL LIGHT WITHIN REACH.
[2017-11-20 20:00] VITALS: BP 134/55
[2017-11-20] MEDS: SENNOSIDES 1 TABLET PO SCH (21:50)
[2017-11-20] MEDS: ENOXAPARIN SODIUM 40 MG/0.4 ML DISP.SYRIN SQ SCH (21:51)
[2017-11-20] MEDS: CEFTRIAXONE 1 G in IV DEXTROSE 5% 50 ML IV SCH (22:36)
[2017-11-21] VITALS: BP 132/64
[2017-11-21 04:00] VITALS: BP 137/62
--- NOTE | 2017-11-21 05:45 | NUR ---
END OF SHIFT NOTES. PT SLEPT WELL THROUGHOUT SHIFT. IN STABLE CONDITION. IV ABX INFUSED, TKO 10CC/HR. SINUS 64 ON THE TELE MONITOR. TOLERATED RA WELL. ALL NEEDS ATTENDED. SAFETY MAINTAINED. CALL LIGHT WITHIN REACH.
[2017-11-21] MEDS: LEVOTHYROXINE SODIUM 50 MCG TABLET PO SCH (06:16)
--- NOTE | 2017-11-21 08:13 | NUR ---
Informed by FAMILY CASEWORKER that client removed her right hand IV line. Bleeding noted, cleansed right hand and small bandage applied, noted IV was pulled out intact
[2017-11-21] MEDS: DOCUSATE SODIUM 250 MG CAPSULE PO SCH ×2 (09:21→17:13)
[2017-11-21] MEDS: LORATADINE 10 MG TABLET PO SCH (09:21)
[2017-11-21] MEDS: MULTIVIT, IRON, MIN NO. 8, FA TABLET PO SCH (09:21)
[2017-11-21] MEDS: LISINOPRIL 10 MG TABLET PO SCH (09:22)
[2017-11-21] MEDS: CHOLECALCIFEROL 1,000 UNIT TABLET PO SCH (09:22)
[2017-11-21] MEDS: FAMOTIDINE 20 MG TABLET PO SCH ×2 (09:22→17:13)
[2017-11-21] MEDS: OXYBUTYNIN CHLORIDE 5 MG TABLET PO SCH ×2 (09:22→20:22)
[2017-11-21] MEDS: MAGNESIUM OXIDE 400 MG TABLET PO SCH (09:22)
[2017-11-21 11:06] VITALS: BP 110/50
[2017-11-21 15:10] VITALS: BP 126/49
--- NOTE | 2017-11-21 17:15 | NUR ---
New IV started on the right hand 20g, client tolerated procedure well. No s/s of infiltration, leaking or redness. IV site wrapped, client is know to remove her IV peripheral lines. IV ATB given and tolerated well
[2017-11-21] MEDS: CEFTRIAXONE 1 G in IV DEXTROSE 5% 50 ML IV SCH (17:20)
--- NOTE | 2017-11-21 19:30 | NUR ---
PT AAO TO SELF ONLY. MAINLY CONFUSED AND DISORIENTED. NO S/SX OF PAIN OR SOB. TYING TO REMOVE IV ON RIGHT HAND AND PT IS REDIRECTED. IV SITE STILL INTACT. SR ON TELE 81/MIN. SAFETY MEASURE INITIATED AND CALL SUERO WITHIN REACH.
--- NOTE | 2017-11-21 19:49 | NUR ---
End of shift notes: Client is confuse and attempts to remove IV line. Bed at lowest position for safety and call light within reach for assistance. No apparent s/s of pain, distress, discomfort, or SOB.
[2017-11-21 20:00] VITALS: BP 129/69
--- NOTE | 2017-11-21 20:07 | NUR ---
NOTED PT IV PULLED OUT. NO BLEEDING NOTED ON IV SITE. NO S/SX OF PAIN OR DISCOMFORT.
[2017-11-21] MEDS: SENNOSIDES 1 TABLET PO SCH (20:22)
[2017-11-21] MEDS: ENOXAPARIN SODIUM 40 MG/0.4 ML DISP.SYRIN SQ SCH (20:23)
[2017-11-22] VITALS: BP 130/58
--- NOTE | 2017-11-22 | NUR ---
Pt AOx1, mainly confused. Not in acute distress. SR on tele 81/min. Safety measure maintained and call bustamante within reached.
[2017-11-22] MEDS: ACETAMINOPHEN 325 MG TABLET PO PRN (00:32)
[2017-11-22 04:00] VITALS: BP 119/45
[2017-11-22 05:46] LABS: BASOPHILS # (AUTO) 0.1 K/uL (0.0-8.0); BASOPHILS % (AUTO) 1.1 % (0.0-2.0); EOSINOPHILS # (AUTO) 0.4 K/uL (0.0-0.7); EOSINOPHILS % (AUTO) 4.8 % (0.0-7.0); HEMATOCRIT 38.5 % (31.2-41.9); HEMOGLOBIN 12.8 g/dL (10.9-14.3); LYMPHOCYTES # (AUTO) 2.5 K/uL (20.0-40.0); LYMPHOCYTES % (AUTO) 30.1 % (20.5-51.5); MEAN CORPUSCULAR HEMOGLOBIN 28.8 uug (24.7-32.8); MEAN CORPUSCULAR HGB CONC 33 g/dL (32.3-35.6); MEAN CORPUSCULAR VOLUME 86.5 fL (75.5-95.3); MONOCYTES # (AUTO) 0.8 K/uL (2.0-10.0); MONOCYTES % (AUTO) 9.4 % (0.0-11.0); NEUTROPHILS # (AUTO) 4.6 K/uL (1.8-8.9); NEUTROPHILS % (AUTO) 54.6 % (38.5-71.5); PLATELET COUNT (AUTO) 182 K/uL (179-408); RED BLOOD CELL COUNT(AUTO) 4.45 MIL/uL (3.63-4.92); WHITE BLOOD COUNT (AUTO) 8.4 K/uL (3.8-11.8)
[2017-11-22] MEDS: LEVOTHYROXINE SODIUM 50 MCG TABLET PO SCH (06:05)
[2017-11-22 06:07] LABS: ALANINE AMINOTRANSFERASE 16 U/L (14-59); ALKALINE PHOSPHATASE 53 U/L (50-136); ASPARTATE AMINOTRANSFERASE 15 U/L (15-37); BILIRUBIN,TOTAL 0.3 mg/dL (0.2-1.0); CARBON DIOXIDE 29 mmol/L (21-32); CHLORIDE 105 mmol/L (98-107); CREATININE 0.7 mg/dL (0.6-1.3); GLUCOSE 93 mg/dL (74-106); PHOSPHOROUS 3.6 mg/dL (2.5-4.9); POTASSIUM 3.8 mmol/L (3.5-5.1); TOTAL PROTEIN, SERUM 6.2 g/dL (6.4-8.2); UREA NITROGEN, BLOOD 18 mg/dL (7-18)
--- NOTE | 2017-11-22 06:32 | NUR ---
PT AAO TO SELF ONLY. MAINLY CONFUSED AND DISORIENTED. NO S/SX OF PAIN OR SOB. O2 SAT AT 93%. IV SITE ON LEFT HAND INTACT. SR ON TELE 60/MIN. SAFETY MEASURE MAINTAINED AND CALL SUERO WITHIN REACH.
--- NOTE | 2017-11-22 07:05 | NUR ---
Received client in bed sleeping in a supine semi fowlers position. No apparent s/s of pain, SOB, distress or discomfort. Bed is at lowest position for safety and call light within reach for assistance. Noted that client has removed her IV site, IV line noted intact, no s/s of bleeding. No hydration running at this time and no O2 in use. Noted that client has removed her DVT pumps
[2017-11-22] MEDS: FAMOTIDINE 20 MG TABLET PO SCH ×2 (08:43→16:07)
[2017-11-22] MEDS: OXYBUTYNIN CHLORIDE 5 MG TABLET PO SCH ×2 (08:43→21:23)
[2017-11-22] MEDS: MAGNESIUM OXIDE 400 MG TABLET PO SCH (08:43)
[2017-11-22] MEDS: MULTIVIT, IRON, MIN NO. 8, FA TABLET PO SCH (08:43)
[2017-11-22] MEDS: CHOLECALCIFEROL 1,000 UNIT TABLET PO SCH (08:43)
[2017-11-22] MEDS: LISINOPRIL 10 MG TABLET PO SCH (08:43)
[2017-11-22] MEDS: LORATADINE 10 MG TABLET PO SCH (08:43)
[2017-11-22] MEDS: DOCUSATE SODIUM 250 MG CAPSULE PO SCH ×2 (08:43→16:07)
--- NOTE | 2017-11-22 10:00 | NUR ---
Dr luna, gave MD an update on the client's condition and informed him about the IV removable by client. stated to try to have an IV line in place just in case of an emergency
[2017-11-22 11:22] VITALS: BP 127/45
[2017-11-22 15:09] VITALS: BP 119/48
--- NOTE | 2017-11-22 15:25 | NUR ---
Started a new IV line 22g on the right hand. Client tolerated procedure well, no s/s of pain, distress, discomfort or SOB. Client was sleeping but easily arousable. Client continued to sleep afterwards.
[2017-11-22] MEDS: CEFTRIAXONE 1 G in IV DEXTROSE 5% 50 ML IV SCH (16:07)
--- NOTE | 2017-11-22 17:30 | NUR ---
Informed by CAMP COUNSELOR that client removed IV line. IV line was pulled intact. CAMP COUNSELOR had a towel wrapped around the client's hand. Bleeding had stopped. Client has no IV access at this time, charge nurse aware.
--- NOTE | 2017-11-22 18:14 | NUR ---
End of shift notes: Client was noted to be sleeping throughout the day but easily arousable to name. Client has been compliant with medications and nursing care. Client is sleeping at this time in a semi fowlers supine position with no apparent s/s of SOB, pain, distress or discomfort. No hydration running at this time and no O2 in use.
--- NOTE | 2017-11-22 19:15 | NUR ---
Pt asleep on bed. Pt shows no signs of distress. Dayshift nurse endorse that the pt pulled out her IV. Bed alarm on and in low position. Call light within reach. will continue to monitor.
[2017-11-22 20:57] VITALS: BP 122/94
[2017-11-22] MEDS: SENNOSIDES 1 TABLET PO SCH (21:23)
[2017-11-22] MEDS: ENOXAPARIN SODIUM 40 MG/0.4 ML DISP.SYRIN SQ SCH (21:27)
--- NOTE | 2017-11-22 21:30 | NUR ---
Pt have new Iv site on Right Antecubital 20g. Pt ate pudding with assistance. Call light within reach. Will continue to monitor.
[2017-11-23] MEDS: ACETAMINOPHEN 325 MG TABLET PO PRN ×2 (00:30→08:47)
[2017-11-23 04:00] VITALS: BP 120/52
[2017-11-23] MEDS: LEVOTHYROXINE SODIUM 50 MCG TABLET PO SCH (06:11)
--- NOTE | 2017-11-23 06:41 | NUR ---
PT SLEPT INTERMITTENTLY. PT TRYING TO PULL OUT THE IV. ALL MEDICATION GIVEN. PT TOLERATED IT WELL. CALL LIGHT WITHIN REACJ. SAFETY AND COMFORT PROVIDED. CONTINUE CARE OF PLAN.WILL ENDORSE TO DAYSHIFT NURSE.
--- NOTE | 2017-11-23 08:00 | NUR ---
AWAKE COOPERATE NO PAIN OR SOB ON ASPIRATION AND FALL PRECAUTION BED ALARM ON AND CALL LIGHT IN REACH EAT BREAKFAST WELL
[2017-11-23] MEDS: DOCUSATE SODIUM 250 MG CAPSULE PO SCH (08:46)
[2017-11-23] MEDS: MULTIVIT, IRON, MIN NO. 8, FA TABLET PO SCH (08:46)
[2017-11-23] MEDS: MAGNESIUM OXIDE 400 MG TABLET PO SCH (08:46)
[2017-11-23] MEDS: LORATADINE 10 MG TABLET PO SCH (08:47)
[2017-11-23] MEDS: OXYBUTYNIN CHLORIDE 5 MG TABLET PO SCH (08:47)
[2017-11-23] MEDS: CHOLECALCIFEROL 1,000 UNIT TABLET PO SCH (08:47)
[2017-11-23] MEDS: LISINOPRIL 10 MG TABLET PO SCH (08:47)
[2017-11-23] MEDS: FAMOTIDINE 20 MG TABLET PO SCH (08:47)
--- NOTE | 2017-11-23 09:00 | NUR ---
DR GORDON SEEN PATIENT AND LAB RESULT OF URINE SENSITIVITIES GIVEN NEW ORDER IN CHART POSS D/C BACK TO SNF
[2017-11-23] MEDS ORDERED: IMIPENEM/CILASTATIN SODIUM 500 MG in IV NORMAL SALINE 100 ML IV ONE (11:00)
--- NOTE | 2017-11-23 11:30 | NUR ---
RESTART A NEW IV LINE #20 ON RT HAND AND MEDICATION ANTIBIOTICS GIVEN ORDER FAMILY AT BEDSIDE D/C INSTRUCTION REGARDING D/C BACK TO [facility] WITH ORDER ,VERBALIZES UNDERSTAND
[2017-11-23 11:40] VITALS: BP 103/43
--- NOTE | 2017-11-23 12:30 | NUR ---
REPORT GIVEN TO NURSE "ZACHARY" VIA TEL EAT LUNCH WELL NO PAIN
[2017-11-23] MEDS ORDERED: MEROPENEM 500 MG in IV NORMAL SALINE 50 ML IV SCH (13:00)
--- NOTE | 2017-11-23 13:00 | NUR ---
FAMILY SON WAS REFUSED TO HAVE VACCINE AT THIS TIME STATE SNF HAVING RECORD /INFORM NURSE AT SNF TO F/U AND UPDATE
--- NOTE | 2017-11-23 15:45 | NUR ---
DISCHARGE TO [facility] VIA AMBULANCE CONDITION STABLE
[2017-11-26] MEDS ORDERED: ERGOCALCIFEROL 50,000 UNIT CAPSULE PO SCH (09:00)
== END 2017-11-23 15:45 | DRG 871 ==
LOC: ER 14:59 → TELE 16:34 → MED 11-22 12:30
PROVIDERS: ADMIT Internal Medicine; ATTEND Internal Medicine
DX: A41.9 Sepsis, unspecified organism (principal); G93.41 Metabolic encephalopathy; E86.9 Volume depletion, unspecified; F02.80 Dementia in other diseases classified elsewhere, unspecified severity, without behavioral disturbance, psychotic disturbance, mood disturbance, and anxiety; N39.0 Urinary tract infection, site not specified; K21.9 Gastro-esophageal reflux disease without esophagitis; R65.20 Severe sepsis without septic shock; Z66 Do not resuscitate; E03.9 Hypothyroidism, unspecified; I10 Essential (primary) hypertension; Z90.710 Acquired absence of both cervix and uterus; Z96.652 Presence of left artificial knee joint; R29.6 Repeated falls; Z87.440 Personal history of urinary (tract) infections; Z79.899 Other long term (current) drug therapy
CPT/HCPCS: 36415; 70030-TC; 70450; 71045; 83605; 83735; 84100; 85025; 85730; 87040; 87077; 87086; 93005; A4663; C1758; J0696; J1650; J2185; J3490; J7050; J7060